=== PATIENT | female | born 1990 | race African-American/Black ===

== ENCOUNTER 2025-04-04 17:43 | Inpatient (IN) | payer SELFPAY ==
[2025-04-04] VITALS (8 sets, daily range): BP systolic 101–153; BP diastolic 63–103; BMI 36.5
[2025-04-04 15:50] LABS: Glucose - Point of Care > 600 mg/dl (70-99)
[2025-04-04 16:06] LABS: Hematocrit 41.0 % (37.0-47.0); Hemoglobin 13.8 g/dL (12.0-16.0); Mean Corp Hgb Conc. 33.7 g/dL (33.0-37.0); Mean Corpuscular Volume 75.5 fL (81.0-99.0); Nucleated Red Blood Cells % 0 %; Platelet Count 322 10^3/uL (130-400); Red Cell Dist. Width 14.4 % (11.5-14.5)
--- NOTE | 2025-04-04 16:22 | ED.GENMED ---
History of Present Illness
<Sammie Butterfield MD, Resident - Last Filed: 04/04/25 18:55>
General
Chief Complaint: Blood Sugar Problem
Source: patient
Time Seen by Provider: 04/04/25 16:03
History of Present Illness
History of Present Illness:
Ms. Dupree is a 34-year-old female with past medical history of seasonal asthma and type 2 diabetes (not on any medications) who presents from work today with hyperglycemia. She states that her friend at work checked her sugar and it was 460,
however in the ED, it is greater than 600. She states that she was diagnosed with type 2 diabetes 3 years ago and at that point was put on metformin, short acting insulin 15 units, and long-acting insulin 45 units. This regimen was discontinued
all at once about a year ago by her PCP at the time as she was having hypoglycemia and her A1c was normalized. She states that for the past 2 days, she has been feeling sluggish, tired, and has had bodyaches/calf cramping. She also reports that
last night she was getting up every 20 minutes to urinate. She had a URI last week. She denies fevers, chills, pain, changes in stool, AMS, increased stress, or any environmental or medication changes.
Past History
<Sammie Butterfield MD, Resident - Last Filed: 04/04/25 18:55>
Past History
ED Past Medical History: Asthma (Seasonal) and NIDDM (Diagnosed 3 years ago, was previously on metformin and short acting plus long-acting insulin however this was DC'd last year by PCP)
Social History
Tobacco: Smoker (15 year history, 15 cig/day)
Alcohol: Occasional
Drug: None
Family History
Family History: Diabetes and Hypertension
Review of Systems
<Sammie Butterfield MD, Resident - Last Filed: 04/04/25 18:55>
Review of Systems
Allergies reviewed?: Yes
All Other Systems: ROS reviewed and negative except as documented in HPI and ROS
Constitutional: Reports fatigue and sleep disturbance
: Reports frequency
Phy Exam
<Sammie Butterfield MD, Resident - Last Filed: 04/04/25 18:55>
General Physical Exam
General Presentation: no apparent distress and mild distress
General Skin: warm and dry
General Mental: alert
ENT Exam
ENT Exam: EOMI
Cardiovascular Exam
Cardiovascular Exam: regular rate/rhythm and no edema
Pulmonary Exam
Pulmonary Exam: lungs clear and no respiratory distress
Gastrointestinal Exam
Gastrointestinal Exam: normal bowel sounds, non tender, soft and non distended
Neurological Exam
Neurological Exam: alert and oriented x3
Skin Exam
Skin Exam: normal color, warm/dry and no rash
Course
<Sammie Butterfield MD, Resident - Last Filed: 04/04/25 18:55>
Orders/Labs/Results
Orders:
Orders
04/04/25 15:48
Test Result ONCE
04/04/25 16:01
B-Hydroxybutyrate Urgent
Complete Blood Count/With Diff Urgent
Comprehensive Metabolic Panel Urgent
Glycohemoglobin (HgbA1c) Urgent
HCG, Serum Qualitative Screen Urgent
04/04/25 16:26
Electrocardiogram (*1) Urgent
Reason for Study: Abnormal EKG
EKG- Treatment ONCE
04/04/25 16:29
Add On- LAB Urgent
Tests Added?: hemoglobin A1C
04/04/25 17:14
0.9% Sodium Chloride 1000 ml [Nss] 1,000 ml IV BOLUS
04/04/25 17:15
Reg Insulin 100 Units/100 ml [Novolin R Insulin Infusion] 100 units in 100 ml IV ORDERED RATE
04/04/25 17:29
Admit/Transfer Patient As Directed
Co-Sign Provider:
Level of Care: Inpatient admission
Assign to:: ICU
Physician / Group: roby
Diagnosis: HHNK
Reason for Hospitalization: HHNK
Expected length of stay greater than two midnights?: Yes
ELOS- Estimated Length of Stay in days: 3
I certify the patient meets the requirements for IP care: Yes
PRN Pain Medication Management As Directed
May give lesser potent ordered pain med per pt: Yes
preference::
Protocol:: Medication orders for pain may be administered in a
manner that supports deferring to patient preference
when the pt is:
- Requesting an ordered lesser potent pain medication.
Least to most potent pain medications are defined
as: acetaminophen < NSAID < tramadol < opioids
(morphine, oxycodone, hydromorphone).
- Requesting a lesser dose of the same medication IF
ORDERED.
- Requesting a less intrusive route of administration
if both routes are prescribed by the provider (PO <
IV).
04/04/25 17:30
Code Status As Directed
Resuscitation Status: Full Code
04/04/25 17:37
Assistant Vice President Consult Routine
Consulting Provider: Amilcar Kelley
Was physician already notified: Yes
Abnormal Lab Results
04/04/25 04/04/25
15:48 16:01
RBC 5.43 H 10^6/uL
(4.20-5.40)
MCV 75.5 L fL
(81.0-99.0)
MCH 25.4 L pg
(27.0-31.0)
Sodium 127 L mmol/L
(135-145)
Chloride 92 L mmol/L
(98-107)
Glucose 741 H* mg/dl
(70-99)
Alkaline Phosphatase 132 H U/L
(38-126)
B-Hydroxybutyrate 0.88 H mmol/L
(0.02-0.27)
POC Glucose > 600 H* mg/dl
(70-99)
04/04/25 16:01
04/04/25 16:01
Vital Signs
Initial and Last Documented VS:
Initial Vital Signs
Temp Pulse Resp BP Pulse Ox
98.2 F 120 16 152/101 97
04/04/25 15:44 04/04/25 15:44 04/04/25 15:44 04/04/25 15:44 04/04/25 15:44
Last Documented Vital Signs
Temp Pulse Resp BP Pulse Ox
98.2 F 101 16 152/101 97
04/04/25 15:44 04/04/25 16:19 04/04/25 15:44 04/04/25 15:44 04/04/25 16:24
<Jaxson Shelton, DO - Last Filed: 04/04/25 17:14>
Orders/Labs/Results
Orders:
Orders
04/04/25 15:48
Test Result ONCE
04/04/25 16:01
B-Hydroxybutyrate Urgent
Complete Blood Count/With Diff Urgent
Comprehensive Metabolic Panel Urgent
Glycohemoglobin (HgbA1c) Urgent
HCG, Serum Qualitative Screen Urgent
04/04/25 16:26
Electrocardiogram (*1) Urgent
Reason for Study: Abnormal EKG
EKG- Treatment ONCE
04/04/25 16:29
Add On- LAB Urgent
Tests Added?: hemoglobin A1C
04/04/25 17:14
0.9% Sodium Chloride 1000 ml [Nss] 1,000 ml IV BOLUS
04/04/25 17:15
Reg Insulin 100 Units/100 ml [Novolin R Insulin Infusion] 100 units in 100 ml IV ORDERED RATE
04/04/25 17:29
Admit/Transfer Patient As Directed
Co-Sign Provider:
Level of Care: Inpatient admission
Assign to:: ICU
Physician / Group: roby
Diagnosis: HHNK
Reason for Hospitalization: HHNK
Expected length of stay greater than two midnights?: Yes
ELOS- Estimated Length of Stay in days: 3
I certify the patient meets the requirements for IP care: Yes
PRN Pain Medication Management As Directed
May give lesser potent ordered pain med per pt: Yes
preference::
Protocol:: Medication orders for pain may be administered in a
manner that supports deferring to patient preference
when the pt is:
- Requesting an ordered lesser potent pain medication.
Least to most potent pain medications are defined
as: acetaminophen < NSAID < tramadol < opioids
(morphine, oxycodone, hydromorphone).
- Requesting a lesser dose of the same medication IF
ORDERED.
- Requesting a less intrusive route of administration
if both routes are prescribed by the provider (PO <
IV).
04/04/25 17:30
Code Status As Directed
Resuscitation Status: Full Code
04/04/25 17:37
Assistant Vice President Consult Routine
Consulting Provider: Amilcar Kelley
Was physician already notified: Yes
Abnormal Lab Results
04/04/25 04/04/25
15:48 16:01
RBC 5.43 H 10^6/uL
(4.20-5.40)
MCV 75.5 L fL
(81.0-99.0)
MCH 25.4 L pg
(27.0-31.0)
Sodium 127 L mmol/L
(135-145)
Chloride 92 L mmol/L
(98-107)
Glucose 741 H* mg/dl
(70-99)
Alkaline Phosphatase 132 H U/L
(38-126)
B-Hydroxybutyrate 0.88 H mmol/L
(0.02-0.27)
POC Glucose > 600 H* mg/dl
(70-99)
04/04/25 16:01
04/04/25 16:01
Vital Signs
Initial and Last Documented VS:
Initial Vital Signs
Temp Pulse Resp BP Pulse Ox
98.2 F 120 16 152/101 97
04/04/25 15:44 04/04/25 15:44 04/04/25 15:44 04/04/25 15:44 04/04/25 15:44
Last Documented Vital Signs
Temp Pulse Resp BP Pulse Ox
98.2 F 101 16 152/101 97
04/04/25 15:44 04/04/25 16:19 04/04/25 15:44 04/04/25 15:44 04/04/25 16:24
<Sammie Butterfield MD, Resident - Last Filed: 04/04/25 18:55>
MDM/Problems Addressed
Differential Diagnosis Includes:
Unmanaged T2DM
DKA
HHS
MDM/Problems Addressed:
Ms. Dupree is a 34-year-old female with past medical history of seasonal asthma and type 2 diabetes (not on any medications) who presents from work today with hyperglycemia (>600).
#Hyperglycemic Hyperosmolar Nonketotic syndrome
#T2DM
ED POC glucose >600. Pt reports at work was 460. Not currently on any medications and does not have a PCP. Based on labs, she does not have an AG and her condition is best described as HHNK. After discussion with patient, we will admit her for
further workup and management.
- Admit to hospitalist team
- 1L NSS; continue prn
- Repeat POC: 741; IV Insulin started
- CBC wnl, BHCG negative
- CMP: Na 127, K 4.9, Cl 92, CO 24 -- anion gap = 11
- B-Hydroxybutyrate 0.88H
- Follow-up Hbg A1C
- PCP referral on dispo
#Nicotine Dependence
15 pack-year history. She would like to quit.
- Nicotine patch while inpatient
- CM consult
- Outpatient referral
Chronic conditions affecting care: DM
<Sammie Butterfield MD, Resident - Last Filed: 04/04/25 18:55>
*Pulse Oximetry
SaO2: 97
Oxygen Mode of Delivery: Room air
<Jaxson Shelton DO - Last Filed: 04/04/25 17:14>
*Pulse Oximetry
Patient hypoxic: no
*Critical Care Note
Total Time (30-74mins, 75-104mins- exclusive of procedures): 32
ED Attending Note
<Sammie Butterfield MD, Resident - Last Filed: 04/04/25 18:55>
-
Portions of this chart may have been created with voice recognition software.� Occasional wrong word or��sound alike� substitutions may have occurred due to the inherent limitations of voice recognition software.
<Jaxson Shelton DO - Last Filed: 04/04/25 17:14>
ED Attending Note
Patient seen and examined by attending physician: Yes
I performed the substantive portion of visit, reviewed & personally made and approve the management plan that is documented in note by myself or HUMA.: Yes
ED Attending Note:
Seen with resident examined independently diabetic off meds for a year, polydipsia polyuria, Accu-Chek noted labs are noted will start IV insulin, low threshold to admit
Discharge Plan
Departure
Patient Disposition: Admit
Date of Disposition: 04/04/25
Time of Disposition: 17:29
Admit to: Med/Surg
Presentation/result/management discussed w/ accepting MD/DO: Hospitalist
Condition: Good
Discharge Problem:
Diabetes mellitus with nonketotic hyperosmolarity
Interventions
Interventions:
ED- Neurological Assessment Last Done: 04/04/25 16:31
[2025-04-04 16:35] LABS: HCG, Serum Qualitative Screen Negative
[2025-04-04 16:50] LABS: ALT (SGPT) 22 U/L (0-35); AST (SGOT) 21 U/L (14-36); Albumin 4.5 g/dl (3.5-5.0); Alkaline Phosphatase 132 U/L (38-126); Blood Urea Nitrogen 15 mg/dl (7-17); Calcium 10.2 mg/dl (8.4-10.2); Carbon Dioxide 24 mmol/L (22-30); Chloride 92 mmol/L (98-107); Glucose 741 mg/dl (70-99); Potassium 4.9 mmol/L (3.5-5.1); Sodium 127 mmol/L (135-145); Total Protein 7.9 g/dl (6.3-8.2); eGFR > 60.00
--- NOTE | 2025-04-04 17:14 | HPS.HSE ---
Addendum entered and electronically signed by Will Dillon MD 04/04/25 17:55:
Seen and examined and discussed with nurse practitioner in detail I am in agreement with plan and management mentioned by nurse practitioner.
Awake and alert, denied the particular complaint, came to the hospital after she was not feeling well and they checked her sugar at her work and sugar was 460 while in the ER much higher, she has history of diabetes all her medication including
insulin discontinued for more than a year by her PCP according to the patient history of A1c normalized. Intermittent increased urinary frequency, polydipsia and polyuria otherwise no fever or chill or cough or congestion.
Sugars extremely elevated and no evidence of DKA anion gap is normal. Started on insulin drip
Vital signs reviewed
Physical exam:
General: Awake, alert and oriented x3, not in distress and holds appropriate conversation.
HEENT: No active discharge, ecchymosis or bruising, moist lips, tongue and mucous membrane.
Eyes: No discharge or red conjunctiva, no nystagmus, pupils are reactive and equal
Neck:Supple, no JVD no bruit no goiter.
Respiratory: Normal AP contour and diameter, normal chest wall movement, normal respiratory effort, no respiratory distress,
Lungs: Good air entry bilaterally, no wheezing or rhonchi, no rales or crackles
Heart: S1, S2 regular, normal rate, no added sound.
Gastrointestinal: Positive bowel sounds, soft, nontender, no guarding or rigidity or organomegaly
Musculoskeletal: , no chest wall abnormality or tenderness. All joints and extremities have good range of motion, no muscle tenderness or any joint swelling or tenderness.
Extremities: No pitting edema, good peripheral pulses, good range of motion, dry scaly skin of feet
Workup including labs, imaging, EKG and archive reviewed.
Assessment and plan:
Hyperglycemia. Nonasthmatic nonketotic hyperglycemia: Likely secondary to not taking medication.
- Insulin drip continued
- Wants sugar normalizes for 3 consecutive hours and regular started on glucose scan and start subcutaneous insulin
- A1c ordered and pending pending the A1c then discharge medication can be adjusted as discussed with the patient
- IV fluids
- Close monitoring of the vital sign
Sinus rhythm of hyperglycemia explained
- Advised about foot hygiene as risks of diabetic foot infection explained to her in detail
Need ophthalmologic evaluation as well as podiatry as an outpatient.
Hyponatremia is likely pseudohyponatremia because of hyperglycemia
Fluid
Recheck
All discussed with the patient and the family
Discussed with nurse practitioner
Original Note:
Family Physician
-
Family Physician: * NONE
Chief Complaint
-
dry mouth, excessive thirst and urinary frequency
History of Present Illness
34-year-old female with past medical history of seasonal asthma and type 2 diabetes (not on any medications) who presents from work today with hyperglycemia. She states that her friend at work checked her sugar and it was 460. patient stated
excessive thirst, dry mouth and urinary frequency for past few days. she was dizzy and noted to have body aches and calf pain. denied HOLMAN or syncope. Patient denied any fever, chills, chest pain, short of breath. Patient denied any abdominal pain,
nausea, vomiting or diarrhea. Patient denied dysuria hematuria/
She states that she was diagnosed with type 2 diabetes 3 years ago and at that point was put on metformin, short acting insulin 15 units, and long-acting insulin 45 units. This regimen was discontinued all at once about a year ago by her PCP at
the time as she was having hypoglycemia and her A1c was normalized.
Upon arrival she was noted to have elevated blood sugar in the 700s. Initiated on insulin drip. Admitting for further management
Medical History
Past Medical History
Past Medical History: Reports None
Additional Past Medical History:
Type 2 diabetes
Past Surgical History: Reports None
Social History
Tobacco: Smoker (10 cigarettes a day)
Alcohol: Occasional
Drug: None
Family History
Family History: Not pertinent
Allergies / Home Medications
Allergies reflects when Allergies were last updated in [employer].
Home Medications with original date entered in [employer]
Allergy/Medication List:
Allergies
Allergy/AdvReac Type Severity Reaction Status Date / Time
No Known Allergies Allergy Unverified 04/04/25 15:46
Home Medications
No Meds [No Current Medications] 04/04/25
Review of Systems
-
Constitutional: Reports No Symptoms
EENT: Reports No Symptoms
Respiratory: Reports No Symptoms
Cardiac: Reports No Symptoms
Abdomen/GI: Reports No Symptoms
: Reports Frequency
Musculoskeletal: Reports No Symptoms
Skin: Reports No Symptoms
Neurological: Reports No Symptoms
Endocrine: Reports No Symptoms
Hematologic/Lymphatic: Reports No Symptoms
Psych: Reports No Symptoms
Physical Exam
Vital Signs
Vital Signs
Temp Pulse Resp BP Pulse Ox
98.2 F 101 16 152/101 97
04/04/25 15:44 04/04/25 16:19 04/04/25 15:44 04/04/25 15:44 04/04/25 16:24
Physical Exam
General: Well Developed, Well Nourished and No Apparent Distress
HEENT: NormoCephalic, Moist mucous membranes and Atraumatic
Respiratory: Clear
Cardiac: S1/S2 and Regular Rhythm; No Murmur or Rub
GI: Soft, Non Tender, Non Distended and Normal Bowel Sounds; No Organomegaly
Rectal: Deferred by Provider
Musculoskeletal: No Clubbing, No Cyanosis and No Edema
Skin: No Rash
Neuro: AO x 3 and Nonfocal/grossly intact
Psych: Calm
Laboratory Results
-
04/04/25 16:01
04/04/25 16:01
Laboratory Results
Total Bilirubin 0.5 mg/dl (0.2-1.3) 04/04/25 16:01
AST 21 U/L (14-36) 04/04/25 16:01
ALT 22 U/L (0-35) 04/04/25 16:01
Alkaline Phosphatase 132 U/L (38-126) H 04/04/25 16:01
Data Reviewed
-
Lab Data: Labs Reviewed by me
Impression/Plan
-
#HHNK
# Type 2 diabetes
-blood glucose 741
-a1c pending
- Insulin drip continue
#Nicotine dependence
-nicotine patch
#DVT prophylaxis
- Lovenox
# CODE STATUS
- Full code
[2025-04-04] MEDS: NSS 1000 IV ×2 (17:49→20:08)
[2025-04-04] MEDS: NOVOLIN R INSULIN INFUSION 100 IV (18:01)
[2025-04-04 19:09] LABS: Glucose - Point of Care 384 mg/dl (70-99)
[2025-04-04 19:46] LABS: Blood Urea Nitrogen 12 mg/dl (7-17); Calcium 9.5 mg/dl (8.4-10.2); Carbon Dioxide 24 mmol/L (22-30); Chloride 103 mmol/L (98-107); Glucose 312 mg/dl (70-99); Potassium 4.1 mmol/L (3.5-5.1); Sodium 135 mmol/L (135-145); eGFR > 60.00
--- NOTE | 2025-04-04 19:50 | PTCARENOTE ---
Patient arrived from the ED via stretcher accompanied by RN. Ambulates to the bed, gait steady. See transfer table operator helper charted on worklist flowsheet. CHG cloth bath, new gown. Placed on CM, SR. She is on an insulin gtt at 6 Units/hr. BMP blood sugar 312,
Insulin gtt titrated per order. Afebrile. BP slightly elevated. S1S2 regular with positive loud murmur. BBS clear anteriorly and diminished posteriorly. She has an occasional loose NPC. Positive pulses, Bilateral pedal edema trace - 1+. Denies pain
at this time. Bed in low and locked position, call valencia within reach.
[2025-04-04] MEDS: NICODERM TRANSDERMAL 21 MG TRANSDERM (20:08)
[2025-04-04] MEDS: REMOVE NICOTINE PATCH REMOVE (20:15)
[2025-04-04] MEDS: TYLENOL 650 MG PO (21:13)
--- NOTE | 2025-04-04 22:10 | PTCARENOTE ---
Patient is standing at bedside crying. She c/o severe leg cramps in her calves. Shan MARES notified. New orders received. Dilaudid given and Muscle rub cream massaged into her calves. After some time she had improvement in leg cramping.
[2025-04-04] MEDS: DILAUDID 0.5 MG IV (22:18)
[2025-04-04] MEDS: BenGay-Like 1 APPLIC TOPICAL (22:27)
[2025-04-04 22:28] LABS: Glucose - Point of Care 179 mg/dl (70-99)
[2025-04-04] MEDS: D5/0.45%NSS with KCL 20 MEQ 1000 IV (22:42)
[2025-04-05] VITALS (16 sets, daily range): BP systolic 115–156; BP diastolic 66–104; BMI 36.6
--- NOTE | 2025-04-05 00:30 | PTCARENOTE ---
Insulin gtt titrated per fingerstick blood sugar per order. Labs drawn, results noted. Leg cramps are improved. No other change in patient physical assessment. Afebrile, VSS.
[2025-04-05 00:58] LABS: Glucose - Point of Care 255 mg/dl (70-99)
[2025-04-05 01:15] LABS: Blood Urea Nitrogen 11 mg/dl (7-17); Calcium 8.7 mg/dl (8.4-10.2); Carbon Dioxide 25 mmol/L (22-30); Chloride 104 mmol/L (98-107); Estimated Creatinine Clearance > 125 ml/min; Glucose 202 mg/dl (70-99); Potassium 4.2 mmol/L (3.5-5.1); Sodium 134 mmol/L (135-145); eGFR > 60.00
[2025-04-05 02:17] LABS: Glucose - Point of Care 283 mg/dl (70-99)
--- NOTE | 2025-04-05 04:15 | PTCARENOTE ---
Patient appears to be sleeping comfortably off/on t/o night with eyes closed, lying still, respirations nonlabored. Tylenol again given prn for c/o mild leg cramp discomfort. No other change in patient's physical assessment.
[2025-04-05] MEDS: TYLENOL 650 MG PO (04:20)
[2025-04-05 04:37] LABS: Hematocrit 36.3 % (37.0-47.0); Hemoglobin 12.1 g/dL (12.0-16.0); Mean Corp Hgb Conc. 33.3 g/dL (33.0-37.0); Mean Corpuscular Volume 75.6 fL (81.0-99.0); Platelet Count 279 10^3/uL (130-400); Red Cell Dist. Width 14.4 % (11.5-14.5)
[2025-04-05 04:59] LABS: Blood Urea Nitrogen 10 mg/dl (7-17); Calcium 8.9 mg/dl (8.4-10.2); Carbon Dioxide 25 mmol/L (22-30); Chloride 104 mmol/L (98-107); Estimated Creatinine Clearance > 125 ml/min; Glucose 202 mg/dl (70-99); Potassium 3.8 mmol/L (3.5-5.1); Sodium 134 mmol/L (135-145); eGFR > 60.00
[2025-04-05] MEDS: D5/0.45%NSS with KCL 20 MEQ 1000 IV (05:37)
[2025-04-05 06:32] LABS: Glucose - Point of Care 195 mg/dl (70-99)
--- NOTE | 2025-04-05 06:53 | PTCARENOTE ---
Report given verbally to oncoming shift, Hui SAUNDERS. Questions answered.
[2025-04-05 07:35] LABS: Glucose - Point of Care 211 mg/dl (70-99)
--- NOTE | 2025-04-05 08:28 | CON.INTV ---
Consultation
Consultation Request
Date/Time Consultation Requested: 04/04/20251736
Date/Time Consultation Performed: 04/05/2025821
Requesting Provider: EDVIN Rainey
Performing Provider: Dr. Kelley
Reason for Consultation: HHNK
Medical History
-
Chief Complaint: Increased urination, leg cramps and weakness
History of Present Illness:
34-year-old female with a past medical history of asthma + DM type II who presents from work with high blood sugar. She states that her friend checked her blood sugar and it was 460. She has been experiencing increased urination, generalized
weakness, fatigue and leg cramps. She has had no fevers, chills, shortness of breath or chest pain. Also no nausea, vomiting, diarrhea or abdominal pain. She was diagnosed with DM type II about 3 years ago and was placed onto metformin as well as
short acting insulin 15 units before meals and long-acting insulin 45 units. She says that her diabetes became controlled and her sugars were on the low side, so she was taken off her insulin regimen and after a while she had stopped checking her
blood sugars. Here in the ER, initial glucose on chemistry was 741 and HbA1c was 13. Initial sodium was 127. She was given 2 L IVF for HHNK, started on insulin drip and then admitted to the ICU for further care. Educational Programming Director services consulted
for additional management and recommendations.
This morning, patient's sugar has markedly improved and is now 202 on chemistry. She feels much better, with improved leg cramps, resolved urinary frequency and resolved body cramps. She currently denies shortness of breath, chest pain or
abdominal pain.
PMHx: Seasonal asthma, DM type II
PSHx: Non-contributory
Past Medical History
Past Medical History: Other (Above as per HPI)
Past Surgical History: Other (Above as per HPI)
Social History
Tobacco: Smoker (0.5 PPD)
Alcohol: Occasional
Drug: None
Family History
Family History: Reviewed & Not Pertinent
Allergies / Home Medications
Allergies
Allergy/AdvReac Type Severity Reaction Status Date / Time
No Known Allergies Allergy Unverified 04/04/25 15:46
Home Medications
�Medication �Instructions �Recorded �Confirmed �Last Taken �Type
No Meds [No Current Medications] 04/04/25 04/04/25 Unknown History
Review of Systems
-
History Source: Patient
All other systems: Negative unless noted
Vitals / Labs / Diagnostic Testing
Vital Signs
Temp Pulse Resp BP Pulse Ox
98.2 F 80 23 134/92 99
04/05/25 07:07 04/05/25 09:00 04/05/25 09:00 04/05/25 08:34 04/05/25 08:27
Lab Data
04/05/25 04:26
04/05/25 16:00
Diagnostic Testing:
Physical Exam
-
HEENT: Normocephalic and Anicteric
Cardiovascular: S1/S2 and Peripheral Edema (negative)
Respiratory: Wheeze (negative), Rhonchi (negative), Non-Labored Respirations and Other (Coarse BS heard bilaterally)
GI: Soft, Non Distended, Non Tender and Normal Bowel Sounds
Neurology: AO x 3 and Tremors (negative)
Skin: Warm and Dry
General: Respiratory Distress (negative), Comfortable, Fever (negative) and Chills (negative)
Assessment
-
Assessment: 34-year-old female with a past medical history of asthma + DM type II who presents from work with high blood sugar. She states that her friend checked her blood sugar and it was 460. She has been experiencing increased urination,
generalized weakness, fatigue and leg cramps. She has had no fevers, chills, shortness of breath or chest pain. Also no nausea, vomiting, diarrhea or abdominal pain. She was diagnosed with DM type II about 3 years ago and was placed onto
metformin as well as short acting insulin 15 units before meals and long-acting insulin 45 units. She says that her diabetes became controlled and her sugars were on the low side, so she was taken off her insulin regimen and after a while she had
stopped checking her blood sugars. Here in the ER, initial glucose on chemistry was 741 and HbA1c was 13. Initial sodium was 127. She was given 2 L IVF for HHNK, started on insulin drip and then admitted to the ICU for further care. Educational Programming Director
services consulted for additional management and recommendations.
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
Impression:
#DM type II c/b hyperglycemia due to HHNK
#Pseudohyponatremia
#General malaise, polyuria and leg cramps due to HHNK with sequelae of glucosuria
#Hx of seasonal asthma
Plan:
- Will start lantus to bridge off insulin gtt
- Continue q1hr fingersticks while on insulin gtt; avoid hypokalemia
- Advised nurse to overlap lantus and insulin gtt x 2 hours
- After lantus is discontinued, she will need to start basal-bolus SQ insulin dosing with ISS
- Rec'd her to see Endocrinology as an outpatient
- Perhaps a Dexcom glucometer would be of benefit to her
- I told her that once she gets home, that she needs to start checking her sugars again before meals, and she understood my instructions
- Maintain SpO2 >90-94%
- Maintain MAP>65
- Replete electrolytes with K>4, Mg>2
- Maintain euglycemia with goal BG 140-180
- Trend H/H and transfuse if needed to keep Hb>7g/dL; keep plt>20k, unless there is concern for bleeding then keep plt>50k
- prn nebulized bronchodilators - not currently bronchospastic
- Incentive spirometer encouraged 10x per hour for at least 4 hrs a day
- DVT ppx: LMWH
Once insulin drip has been transitioned off, patient can be downgraded to Med-Surg. Once downgraded, Educational Programming Director/Pulmonary service will sign off. Thank you for allowing us to be involved in the care of this patient. Please call back with any
questions or concerns.
Total time spent today was 79 minutes for this encounter. Time includes reviewing laboratory test/imaging results, reviewing pertinent medical records, obtaining and reviewing medical history, performing an appropriate exam, ordering medications,
tests and procedures. Time also includes documentation of this encounter, coordinating patient care and communicating with other healthcare professionals. Total time does not include separately billed tests performed on this date of service.
[2025-04-05] MEDS: NICODERM TRANSDERMAL 21 MG TRANSDERM (08:32)
[2025-04-05] MEDS: BenGay-Like 1 APPLIC TOPICAL ×3 (08:32→17:34)
[2025-04-05 08:52] LABS: Glycohemoglobin (HgbA1c) 13.0 % (4.0-5.6)
--- NOTE | 2025-04-05 08:59 | PTCARENOTE ---
Received pt @ change of shift. AAOx3, denies pain, leg cramps @ x's. SR on monitor; murmur present. SpO2 99% on RA. +BS, abd soft, round, obese. Cont b/b. Ad florencia in room, tolerating activity. #20 L AC w insulin gtt and IVF infusing- see flow
sheet. #20 R AC patent, c/d/i. Plan to transition off insulin gtt; in contact w MD team regarding management. Remains NPO while orders in adjustment by MD. Pt.'s call erik lee in reach.
[2025-04-05 09:51] LABS: Glucose - Point of Care 221 mg/dl (70-99)
[2025-04-05] MEDS: LANTUS 0.12 UNITS SC (10:09)
[2025-04-05] MEDS: NOVOLOG FLEXPEN-MODERATE RESISTANCE 3 UNITS SC (10:49)
[2025-04-05] MEDS: NOVOLOG FLEXPEN 4 UNITS SC ×2 (10:49→17:32)
--- NOTE | 2025-04-05 11:16 | W.PN.UPDATE ---
Update Note
Progress Note Update
Uncontrolled diabetes with A1c of 13.0.
Previously on insulin and diabetic agents was taken off by PCP approximately 1 year ago
Presented with HHNK with a hemoglobin of 741 and a sodium of 127 that corrects closer to normal.
Started on insulin drip. Sugars improved. Transition to subcutaneous insulin. Have ordered to start Lantus 15 units along with 4 units AC short acting. Along with moderate scale. Will need diabetes consulted. Also would initiate metformin.
Due to BMI of 36.6 may be a candidate for GLP-1 antagonist as well which she can discuss this with outpatient endocrinology.
At this time does not have PCP and will need 1.
Downgrade to MedSurg.
--- NOTE | 2025-04-05 11:50 | W.PN.HOSP.TC ---
Addendum entered and electronically signed by Arcenio Hernandez MD 04/05/25 12:19:
Uncontrolled diabetes with A1c of 13.0.
Previously on insulin and diabetic agents was taken off by PCP approximately 1 year ago
Presented with HHNK with a hemoglobin of 741 and a sodium of 127 that corrects closer to normal.
Started on insulin drip. Sugars improved. Transition to subcutaneous insulin. Have ordered to start Lantus 15 units along with 4 units AC short acting. Along with moderate scale. Will need diabetes consulted. Also would initiate metformin.
Due to BMI of 36.6 may be a candidate for GLP-1 antagonist as well which she can discuss this with outpatient endocrinology.
At this time does not have PCP and will need 1.
Downgrade to MedSurg.
Original Note:
Today's Communication/Plan
-
Downgrade to floors
Convert to subcu insulin
Initiate diet
Assessment / Plan
Assessment / Plan
34-year-old female with uncontrolled diabetes mellitus type 2, seasonal asthma, who presents in hyperglycemic hyperosmolar nonketotic state.
Hyperglycemic hyperosmolar nonketotic state:
Hyperglycemia up to 741 on arrival, fatigue and polyuria
Recently stopped insulin and metformin about a year ago by PCP due to normalized HbA1c and hypoglycemia.
- HbA1c now 13
- Was on insulin drip, converted to subcu Lantus 15 units, short acting 4 units AC
- Moderate redness insulin sliding scale
- Diabetic nurse petitioner
- Likely start other diabetic agent (patient may benefit from GLP-1 agonist)
- Downgrade to floors
- Will place diet
Hyponatremia:
- 127 on arrival. Secondary to HHNK
- Markedly improved with IV fluids, now 134
DVT prophylaxis: Heparin
CODE STATUS: Full code
Anticipated Discharge: Within 24 hours
Subjective/Interval History
-
Date of Service: April 05, 2025
Pt reports feeling better today. Good appetite
Objective Data
-
Labs:
Laboratory Results
04/05/25 04/05/25 04/05/25
00:52 04:26 08:00
WBC 7.2
Hgb 12.1
Hct 36.3 L
Plt Count 279
Sodium 134 L 134 L Cancelled
Potassium 4.2 3.8 Cancelled
Chloride 104 104 Cancelled
Carbon Dioxide 25 25 Cancelled
BUN 11 10 Cancelled
Creatinine 0.5 L 0.5 L Cancelled
Glucose 202 H 202 H Cancelled
Calcium 8.7 8.9 Cancelled
04/05/25 04/05/25 04/05/25
12:00 12:00 12:00
WBC
Hgb
Hct
Plt Count
Sodium Cancelled Cancelled
Potassium Cancelled Cancelled
Chloride Cancelled
Carbon Dioxide
BUN
Creatinine
Glucose
Calcium
04/05/25 04/05/25 04/05/25
12:00 12:00 12:00
WBC
Hgb
Hct
Plt Count
Sodium
Potassium
Chloride Cancelled
Carbon Dioxide Cancelled Cancelled
BUN Cancelled Cancelled
Creatinine Cancelled
Glucose
Calcium
04/05/25 04/05/25 04/05/25
12:00 12:00 12:00
WBC
Hgb
Hct
Plt Count
Sodium
Potassium
Chloride
Carbon Dioxide
BUN
Creatinine Cancelled
Glucose Cancelled Cancelled
Calcium Cancelled Cancelled
04/05/25
16:00
WBC
Hgb
Hct
Plt Count
Sodium Cancelled
Potassium Cancelled
Chloride Cancelled
Carbon Dioxide Cancelled
BUN Cancelled
Creatinine Cancelled
Glucose Cancelled
Calcium Cancelled
Vital Signs:
Vital Signs
Temp Pulse Resp BP Pulse Ox
98.6 F 80 23 134/92 99
04/05/25 11:29 04/05/25 09:00 04/05/25 09:00 04/05/25 08:34 04/05/25 08:27
I&O
04/04/25 04/05/25 04/06/25
06:59 06:59 06:59
Intake Total 1680 / 1832 470 / 470
Output Total 725 / 725 200 / 200
Balance 955 / 1107 270 / 270
Review of Systems
-
History Source: Patient
Constitutional: Reports Fatigue; Denies Fever or No Appetite
Respiratory: Denies Trouble Breathing
Cardiac: Denies Chest Pain, Palpitations or Syncope
Abdomen/GI: Denies Abdominal Pain, Nausea, Vomiting, Diarrhea or Constipated
Genitourinary: Denies Dysuria, Difficulty Voiding or Bleeding
Neuro: Denies Dizzy
Physical Exam
-
General: Well Developed, Well Nourished, No Apparent Distress and Comfortable
HEENT: Normocephalic and Atraumatic
Respiratory: Clear to Auscultation and Non Labored Respirations; Negative Wheezes, Rales, Rhonchi or Crackles
Cardiac: Regular Rhythm and S1/S2; Negative Murmur, Rub or Calf Tenderness
GI: Soft, Nontender, Nondistended and Normal Bowel Sounds
Musculoskeletal: No Clubbing, No Cyanosis and No Edema
Skin: Warm and Dry
Neuro: Awake, Alert and Oriented
Psych: Calm
--- NOTE | 2025-04-05 12:23 | PTCARENOTE ---
pt. transitioned off insulin gtt to SC insulin per orders- see MAR/ flow sheet. Downgraded to m/s level of care; nurse monitoring removed. Pt. ab florencia in rm, tolerating activity. Call erik lee in reach.
--- NOTE | 2025-04-05 13:49 | PTCARENOTE ---
Report given to 4W RN and pt. transferred to rm [id number] via wheelchair w PCT and belongings. No further needs from this RN.
--- NOTE | 2025-04-05 14:56 | CM ---
Initial assessment completed with patient who lives with her sister in a 2 story plus basement home with B/B on 2nd, no bath on 1st, 4 steps to enter. 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 No in-home services. Does not have HC-POA. No VA benefits. No psychiatric hospitalizations. Does not have a PCP. She switched insurance and her PCP was out of network. Pharmacy is [facility] on [address] in [place]. Discharge POC:
Anticipate home with no needs. Will need to recommend following with [facility] until she gets a PCP. Insurance says self pay.
[2025-04-05 17:28] LABS: Glucose - Point of Care 284 mg/dl (70-99)
[2025-04-05] MEDS: NOVOLOG FLEXPEN-MODERATE RESISTANCE 5 UNITS SC (17:32)
[2025-04-05 20:56] LABS: Glucose - Point of Care 312 mg/dl (70-99)
[2025-04-05] MEDS: REMOVE NICOTINE PATCH 1 PATCH REMOVE (20:58)
[2025-04-05] MEDS: BenGay-Like TOPICAL (21:00)
--- NOTE | 2025-04-06 07:07 | W.PN.HOSP.TC ---
Today's Communication/Plan
-
- Continue subq Lantus 16 units, short acting 4 units AC
- Continue moderate sliding scale insulin
- Establish PCP & endocrinology followup outpatient (lives in [place])
- Discharge today
Assessment / Plan
Assessment / Plan
Nino Dupree is a 34-year-old F with a pmh of uncontrolled diabetes mellitus type 2 & seasonal asthma, who presented with hyperglycemic hyperosmolar nonketotic state, now improving s/p insulin gtt.
#Hyperglycemic hyperosmolar nonketotic state
Hyperglycemia up to 741 on arrival, fatigue and polyuria. Had stopped insulin and metformin about a year ago by PCP due to normalized HbA1c and hypoglycemia. HbA1c now 13. S/p insulin gtt.
Glucose overnight: 284>312. This am: 267. AVSS.
- Continue subq Lantus 16 units, short acting 4 units AC
- Continue moderate sliding scale insulin
- Diabetic DIAMOND POLISHER consulted, following
- Likely start other diabetic agent (patient may benefit from GLP-1 agonist)
- Establish PCP & endocrinology followup outpatient (lives in [place])
- Continue diabetic diet PO
#Hyponatremia
127 on arrival. Secondary to HHNK. Markedly improved with IV fluids, uptrended to 134.
- Continue to monitor
#Chronic
-Asthma - ntd
-Tobacco use - nicotine patch
#Global
- DVT prophylaxis: lovenox
- CODE STATUS: Full code
- Diet: regular diabetic
- Dispo: to home, likely later today
Anticipated Discharge: Today
Subjective/Interval History
-
Date of Service: April 06, 2025
Seems to be in good spirits, comfortable. Discussed possibility of GLP-1 and importance of getting outpatient primary. States that she is feeling well, no HOLMAN, no n/v; was able to eat last night without issue. No polyuria. No pain. States that she's
hopeful about going home today.
Objective Data
-
Labs:
Laboratory Results
04/06/25
06:00
WBC Pending
Hgb Pending
Hct Pending
Plt Count Pending
Sodium Pending
Potassium Pending
Chloride Pending
Carbon Dioxide Pending
BUN Pending
Creatinine Pending
Glucose Pending
Calcium Pending
Alkaline Phosphatase Pending
Vital Signs:
Vital Signs
Temp Pulse Resp BP Pulse Ox
98.4 F 85 16 115/71 97
04/05/25 23:18 04/05/25 23:18 04/05/25 23:18 04/05/25 23:18 04/05/25 23:18
I&O
04/05/25 04/06/25 04/07/25
06:59 06:59 06:59
Intake Total 1680 / 1832 2390 / 2390
Output Total 725 / 725 200 / 200
Balance 955 / 1107 2190 / 2190
Review of Systems
-
History Source: Patient
All other systems: Reviewed and negative
Physical Exam
-
General: Well Developed, Well Nourished, Comfortable and Conversant
HEENT: Normocephalic, Atraumatic and Anicteric
Respiratory: Non Labored Respirations
Cardiac: Regular Rhythm
GI: Nondistended
Musculoskeletal: No Edema
Skin: Warm and Dry
Neuro: Awake, Alert and Oriented
Psych: Calm
Data Reviewed
-
Total Time Spent with Patient (in minutes): 10
Critical Care Time (in minutes): 45
Labs: Labs Reviewed by me and Discussed with Patient
[2025-04-06 07:15] VITALS: BP 119/71
[2025-04-06 07:24] LABS: Glucose - Point of Care 304 mg/dl (70-99)
[2025-04-06] MEDS: NOVOLOG FLEXPEN-MODERATE RESISTANCE 7 UNITS SC ×2 (07:37→11:35)
[2025-04-06] MEDS: NOVOLOG FLEXPEN 4 UNITS SC ×2 (07:37→11:34)
[2025-04-06] MEDS: LANTUS 0.12 UNITS SC (07:38)
[2025-04-06] MEDS: NICODERM TRANSDERMAL 21 MG TRANSDERM (07:38)
[2025-04-06] MEDS: BenGay-Like TOPICAL ×2 (07:38→12:17)
[2025-04-06 07:40] LABS: Hematocrit 38.0 % (37.0-47.0); Hemoglobin 12.6 g/dL (12.0-16.0); Mean Corp Hgb Conc. 33.2 g/dL (33.0-37.0); Mean Corpuscular Volume 76.8 fL (81.0-99.0); Platelet Count 277 10^3/uL (130-400); Red Cell Dist. Width 14.7 % (11.5-14.5)
[2025-04-06 08:04] LABS: Alkaline Phosphatase 55 U/L (38-126); Blood Urea Nitrogen 7 mg/dl (7-17); Calcium 9.1 mg/dl (8.4-10.2); Carbon Dioxide 27 mmol/L (22-30); Chloride 105 mmol/L (98-107); Estimated Creatinine Clearance > 125 ml/min; Glucose 267 mg/dl (70-99); Magnesium 1.6 mg/dl (1.6-2.3); Potassium 4.7 mmol/L (3.5-5.1); Sodium 134 mmol/L (135-145); eGFR > 60.00
--- NOTE | 2025-04-06 11:23 | CM ---
Addendum entered by Dodie Magallon 04/06/25 13:07:
Patient provided with numbers to call, insulin RX program to text to enroll for patients with [place] insurance [place] [phone]) can call [phone]. Patient confirms [facility] pharmacy for scripts to be sent to- Yonathan Huff.
Original Note:
CM reviewed chart, patient seen bedside, likely for d/c today. Patient denies needs from CM, reports she will Uber herself home. CM will continue to follow for all discharge planning needs.
Plan; home no needs
[2025-04-06 11:34] LABS: Glucose - Point of Care 322 mg/dl (70-99)
--- NOTE | 2025-04-06 13:41 | W.DCSUMMARY ---
Documented by User: Xiomara Hoskins MD, Resident 04/06/25 13:51
Discharge Summary
Discharge Data
Date of Admission: 04/04/25
Date of Discharge: 04/06/25
Total time spent discharging patient (in min): 35
-
Pending Results: No
Hospital Course
Discharging Physician : Valerio Duran; Xiomara Hoskins
Disposition : to home
Primary care physician : none, referred to Luis Issa MD
Principal Discharge diagnosis : hyperosmolar hyperglycemic state
Chronic Discharge diagnosis : asthma
Hospital Course :
34yo F with history of type 2 diabetes who presented on 04/04 with hyperglycemia from work after a friend checked her blood glucose & found it at 460. Patient was experiencing excessive thirst, dry mouth, & urinary frequency for the past few days.
Was also dizzy, with body aches/leg cramps on presentation. She was diagnosed with T2DM three years prior and had been on metformin, short-acting insulin 15U, and long-acting insulin 45U. However, she states that all meds were discontinued ~1yr
prior by PCP because she was having hypoglycemia and her A1c had normalized.
On presentation to ED, blood glucose was 741, A1c was 13, and Na was 127. Pt was treated with insulin drip and 2L IVF. On 04/05, meds were converted to lantus 12 units and short acting 4 units AC, with moderate sliding scale insulin.
Overnight 04/05, glucose ranged 284-312. Fingerstick glucose was 267 during day of discharge. Na normalized to 134. Symptoms resolved, no complaints. Plan for discharge with 16U long-acting insulin and 4U short-acting insulin, with close outpatient
follow-up with new PCP & insole reinforcer for long-term DM management and likely starting on additional medication such as GLP-1 agonist.
Important imaging findings : N/A
Procedure findings : N/A
Discharge Plan
-
Patient Disposition: Home (Routine Discharge)
Discharge Diagnosis/Procedures: hyperosmolar hyperglycemic state
Condition: Good
Diet: Diabetic, Carb Controlled
Activity: No restrictions
Driving Restrictions: As prior to admission
Bathing Restrictions: None
Referrals:
Luis Issa MD [Other, Internal Medicine] - in one week
Referral Note: follow up diabetes mgmt
Lulú Spring MD [Other, Endocrinology] - in one week
Referral Note: for diabetes mgmt
Prescriptions:
New
insulin aspart U-100 100 unit/mL (3 mL) Insulin Pen
4 unit SC AC Qty: 15 1RF
insulin glargine [Lantus Solostar U-100 Insulin] 100 unit/mL (3 mL) insulin pen
16 unit SC DAILY Qty: 15 1RF
(DME) blood-glucose meter Misc
See Rx Instructions .Route Qty: 1 0RF
Rx Instructions:
As directed
(DME) lancet-gluc ubqib-gseqrv-qkyvq Kit
See Rx Instructions .Route Qty: 1 0RF
Rx Instructions:
As directed
(DME) Accu-Chek Denae Plus test strp Strip
See Rx Instructions .Route Qty: 50 0RF
Rx Instructions:
As directed
Discharge Orders:
Discharge Patient (As Directed); Ordered 04/06/25
Ordered By: Xiomara Hoskins
Discharge Date and Time
Discharge Date/Time: 04/06/25 14:11
Print Language: LAO

Documented by User: Valerio Duran DO 04/06/25 16:07
Discharge Summary
Discharge Data
Date of Admission: 04/04/25
Date of Discharge: 04/06/25
Discharge Plan
-
Patient Disposition: Home (Routine Discharge)
Discharge Diagnosis/Procedures: hyperosmolar hyperglycemic state
Condition: Good
Diet: Diabetic, Carb Controlled
Activity: No restrictions
Driving Restrictions: As prior to admission
Bathing Restrictions: None
Referrals:
Luis Issa MD [Other, Internal Medicine] - in one week
Referral Note: follow up diabetes mgmt
Lulú Spring MD [Other, Endocrinology] - in one week
Referral Note: for diabetes mgmt
Prescriptions:
New
insulin aspart U-100 100 unit/mL (3 mL) Insulin Pen
4 unit SC AC Qty: 15 1RF
insulin glargine [Lantus Solostar U-100 Insulin] 100 unit/mL (3 mL) insulin pen
16 unit SC DAILY Qty: 15 1RF
(DME) blood-glucose meter Misc
See Rx Instructions .Route Qty: 1 0RF
Rx Instructions:
As directed
(DME) lancet-gluc bsnbn-utnmdv-neuuz Kit
See Rx Instructions .Route Qty: 1 0RF
Rx Instructions:
As directed
(DME) Accu-Chek Denae Plus test strp Strip
See Rx Instructions .Route Qty: 50 0RF
Rx Instructions:
As directed
Discharge Orders:
Discharge Patient (As Directed); Ordered 04/06/25
Ordered By: Xiomara Hoskins
Discharge Date and Time
Discharge Date/Time: 04/06/25 14:11
Print Language: LAO
[2025-04-06 13:52] VITALS: BP 108/69
--- NOTE | 2025-04-06 13:53 | PTCARENOTE ---
04/06/2025 DIABETES EDUCATION CONSULT
I met with patient to review diabetes management. She has had T2D for 3 years, her PCP discontinued medications since her blood sugar numbers were under control. Previously she was prescribed Metformin, long acting insulin and mealtime insulin.
I educated on physiology of T2D, organ damage, managing with medications, monitoring BG, nutrition, activity, sleep and managing stress. I reinforced signs of hyperglycemia, hypoglycemia and hypoglycemia protocol; BS parameters and recommended HbA1c
goals, glucometer and CGM instructions, glucose tracker, medic alert bracelet and outpatient DSME program. Written material provided.
I provided patient with a eDabba glucometer sample kit. She has checked BS in the past with a glucometer and CGM. Declined additional demonstration. I educated on insulin injection technique, timing, and storage. Discussed long and
short acting insulin; onset/peak/duration. She declined demonstration as she has used insulin the the past. Discussed normal target glucose ranges and a monitoring schedule 15 minutes before each meal when prescribed Novolog, and preprandial AM.
Also stated that she will need to check her blood sugar before every meal and either fasting AM or before bedtime.
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 She was informed about the [facility] clinic, I encouraged her to follow up at
the clinic until she can get established with a new PCP.
Provided education that [facility] has blood sugar testing supplies available without a prescription, recommended she go to [facility] for supplies at this time. Also spoke to sample case porter, Beverly, and informed her patient does not have insurance. Beverly
will research cost savings options for long acting and rapid acting insulin and discuss with patient.
Provided list of endocrinologists if desired, to contact insurance company to verify in network status.
== END 2025-04-06 14:11 | disposition home or self-care (01) | DRG 639 ==
LOC: 4 WEST ACU 17:43
PROVIDERS: Registered Nurse; ADMITTING PHYSICIAN Internal Medicine; ATTENDING PHYSICIAN Internal Medicine; CONSULT PHYSICIAN Internal Medicine Critical Care Medicine; EMERGENCY PHYSICIAN Emergency Medicine
DX: E11.00 Type 2 diabetes mellitus with hyperosmolarity without nonketotic hyperglycemic-hyperosmolar coma (NKHHC) (principal); F17.210 Nicotine dependence, cigarettes, uncomplicated; I10 Essential (primary) hypertension; J45.909 Unspecified asthma, uncomplicated; Z79.4 Long term (current) use of insulin; T38.3X6A Underdosing of insulin and oral hypoglycemic [antidiabetic] drugs, initial encounter; Z91.138 Patient's unintentional underdosing of medication regimen for other reason
CPT/HCPCS: 80048; 80053; 82010; 82962; 83036; 83735; 84075; 84100; 84703; 85025; 85027; 93005; 96361; 96365; 96366; 99291; 99406